=== PATIENT | female | born 1995 | race Caucasian/White ===

== ENCOUNTER 2021-12-22 20:11 | Inpatient (IN) ==
[2021-12-22] MEDS ORDERED: Azithromycin 500 MG in 0.9 % Sodium Chloride 250 ML IVPB PRN (20:17)
[2021-12-22] MEDS ORDERED: Naloxone 0.4 MG/ML INJ IVP PRN (20:17)
[2021-12-22] MEDS ORDERED: Metoclopramide 10 MG/2 ML VIAL IVP PRN (20:17)
[2021-12-22] MEDS ORDERED: *HR* Nalbuphine 10 MG/ML AMPUL IV PRN (20:17)
[2021-12-22] MEDS ORDERED: Famotidine 20 MG/2 ML VIAL IVP PRN (20:17)
[2021-12-22] MEDS ORDERED: Ondansetron 4 MG/2 ML VIAL IVP PRN (20:17)
[2021-12-22] MEDS ORDERED: Oxytocin 20 units/ LR 1000 mL 20 UNIT/1,000 ML BAG IVC SCH (20:30)
[2021-12-22 21:23] LABS: Basophils # 0.1 K/mcL (0.0-0.2); Basophils % 0.5 %; Eosinophils # 0.2 K/mcL (0.0-0.6); Eosinophils % 1.2 %; Hematocrit 38.3 % (35.3-44.9); Hemoglobin 12.8 g/dL (11.5-15.4); Immature Granulocytes % 1.6 % (0-4); Lymphocytes # 2.1 K/mcL (0.6-4.6); Lymphocytes % 13.5 %; Mean Corpuscular HGB Conc 33.4 g/dL (31.6-35.5); Mean Corpuscular Hemoglobin 30.4 pg (28.0-33.3); Mean Platelet Volume 10.7 fL (9.4-12.4); Monocytes # 0.7 K/mcL (0.0-1.3); Monocytes % 4.8 %; Neutrophils # 11.9 K/mcL (1.6-8.9); Platelet Count 289 K/mcL (140-400); Red Blood Count 4.21 M/mcL (3.82-4.97); Red Cell Distribution Width 13.6 % (11.5-14.5); Segmented Neutrophils % 78.4 %; White Blood Count 15.2 K/mcL (4.3-11.1)
[2021-12-22] MEDS ORDERED: EPHEDrine 50 MG/ML VIAL IVP PRN (21:28)
[2021-12-22] MEDS: miSOPROStoL 25 MCG TABLET PO PRN (21:52)
[2021-12-22] MEDS: Ringers Solution, Lactated 1,000 ML IVC SCH (21:53)
[2021-12-22 22:03] LABS: Amphetamine Screen,Urine Negative ng/mL (Cutoff=1000); Barbiturate Screen,Urine Negative ng/mL (Cutoff=200); Benzodiazepines Screen,Urine Negative ng/mL (Cutoff=200); Cannabinoid Screen,Urine Negative ng/mL (Cutoff = 50); Cocaine Screen,Urine Negative ng/mL (Cutoff= 300); Opiate Screen,Urine Negative ng/mL (Cutoff=300); Phencyclidine Screen,Urine Negative ng/mL (Cutoff=25)
[2021-12-23] MEDS ORDERED: *HR* FentaNYL (PF) 100 MCG/2 ML VIAL ONE (01:24)
[2021-12-23] MEDS ORDERED: Ropivacaine/PF 0.2% 20 ML VIAL ONE (01:24)
[2021-12-23] MEDS: Epidural Premix (fent/bupiv) 110 ML EP SCH ×2 (01:42→18:04)
[2021-12-23] MEDS: miSOPROStoL 25 MCG TABLET PO PRN (02:29)
[2021-12-23] MEDS: Ringers Solution, Lactated 1,000 ML IVC SCH ×2 (02:31→10:35)
[2021-12-23] MEDS ORDERED: Acetaminophen 325 MG TABLET PO ONE (19:34)
[2021-12-23] MEDS ORDERED: Ondansetron 4 MG/2 ML VIAL ONE (21:24)
[2021-12-23] MEDS ORDERED: ceFAZolin 2,000 MG in Water for inj. (sterile) 20 ML IVP ONE ×2 (21:24→21:33)
[2021-12-23] MEDS ORDERED: Lidocaine/EPI 1:200k 2% PF 20 ML VIAL ONE (21:31)
[2021-12-23] MEDS ORDERED: Acetaminophen IV 1,000 MG/100 ML BAG IVPB ONE (22:01)
[2021-12-23] MEDS ORDERED: *HR* Morphine Sulfate/PF 10 MG/10 ML AMPUL ONE (22:01)
[2021-12-23] MEDS ORDERED: Ketorolac 30 MG/ML VIAL ONE (22:01)
[2021-12-24] MEDS ORDERED: Oxytocin 20 units/ LR 1000 mL 20 UNIT/1,000 ML BAG IVC SCH (01:12)
[2021-12-24] MEDS ORDERED: Ondansetron 4 MG/2 ML VIAL IVP PRN (01:12)
[2021-12-24] MEDS ORDERED: *HR* OxyCODONE Immed Rel 5 MG TABLET PO PRN (01:12)
[2021-12-24] MEDS ORDERED: Metoclopramide 10 MG/2 ML VIAL IVP PRN (01:12)
[2021-12-24] MEDS: Acetaminophen 325 MG TABLET PO SCH ×4 (01:30→21:57)
[2021-12-24] MEDS ORDERED: Ketorolac 30 MG/ML VIAL IVP ONE (04:00)
[2021-12-24 04:28] LABS: Basophils # 0.1 K/mcL (0.0-0.2); Basophils % 0.2 %; Hematocrit 33.3 % (35.3-44.9); Lymphocytes # 0.9 K/mcL (0.6-4.6); Lymphocytes % 3.5 %; Mean Corpuscular HGB Conc 32.7 g/dL (31.6-35.5); Mean Corpuscular Hemoglobin 30.2 pg (28.0-33.3); Mean Corpuscular Volume 92.2 fL (83.0-100.0); Mean Platelet Volume 10.8 fL (9.4-12.4); Monocytes # 0.9 K/mcL (0.0-1.3); Monocytes % 3.5 %; Neutrophils # 22.9 K/mcL (1.6-8.9); Platelet Count 236 K/mcL (140-400); Red Blood Count 3.61 M/mcL (3.82-4.97); Red Cell Distribution Width 13.4 % (11.5-14.5); Segmented Neutrophils % 91.8 %
[2021-12-24 04:31] LABS: Hemoglobin 10.9 g/dL (11.5-15.4); White Blood Count 24.9 K/mcL (4.3-11.1)
[2021-12-24 05:08] LABS: Platelet Estimate Normal (Normal)
[2021-12-24] MEDS: Prenatal Vit/FA 1 EACH TABLET PO SCH (07:45)
[2021-12-24] MEDS ORDERED: Simethicone 80 MG TAB.CHEW PO SCH (09:00)
[2021-12-24] MEDS: Ibuprofen 600 MG TABLET PO SCH ×2 (11:15→16:55)
[2021-12-24 12:52] VITALS: TEMP 98; O2SAT 97
[2021-12-24 19:13] VITALS: BP 91/56; PULSE 88
[2021-12-25] MEDS: Ibuprofen 600 MG TABLET PO SCH (03:14)
[2021-12-25] MEDS: Acetaminophen 325 MG TABLET PO SCH (06:20)
[2021-12-25] MEDS: Prenatal Vit/FA 1 EACH TABLET PO SCH (08:57)
== END 2021-12-25 12:36 | disposition home or self-care (01) | DRG 540 ==
LOC: 1NENULAB 20:11 → 1NENUOBS 12-24 01:26
PROVIDERS: ADMIT Obstetrics & Gynecology; ATTEND Obstetrics & Gynecology